=== PATIENT | female | born 1965 | race Caucasian/White ===

== ENCOUNTER 2018-09-19 10:47 | Outpatient (CLI) | payer OTHER, SELFPAY ==
--- NOTE | 2018-09-19 13:51 | DI.US_ITS ---
SYMPTOMS/DIAGNOSIS: NAUSEA AND VOMITING, R11.2, RIGHT LOWER QUADRANT ABDOMINAL PAIN, R10.31, EPIGASTRIC ABDOMINAL PAIN, R10.13 ABDOMINAL ULTRASOUND: Routine examination was performed. The aorta is of normal caliber. The IVC is unremarkable. The liver measures 17.2 cm in length. No hepatic mass is identified. The liver is normal in echogenicity. The gallbladder is negative sonographically. There is a negative sonographic Hernandez's sign. No pericholecystic fluid, stone or gallbladder wall thickening is seen. The common duct is within normal limits at 0.3 cm. The pancreas, spleen and kidneys are unremarkable. The right lower quadrant was evaluated sonographically and it was grossly unremarkable. No sonographic findings to suggest an acute appendicitis are present. IMPRESSION: Normal abdominal ultrasound.
== END 2018-09-19 11:07 ==
PROVIDERS: Visit Provider Nurse Practitioner Family
DX: R11.2 Nausea with vomiting, unspecified (principal); R10.31 Right lower quadrant pain; R10.13 Epigastric pain
CPT/HCPCS: 76700

== ENCOUNTER 2018-09-19 17:20 | Outpatient (REF) | payer OTHER, SELFPAY ==
[2018-09-19 18:03] LABS: Abs Immature Grans 0.01 k/cumm (0.0-0.09); Absolute Basophil Count 0.04 k/cumm (0.0-0.2); Absolute Eosinophil Count 0.19 k/cumm (0.0-0.7); Absolute Monocyte Count 0.36 k/cumm (0.11-0.7); Absolute Neutrophil Count 3.67 k/cumm (1.2-6.7); Basophils % 0.7; Eosinophils % 3.5; HCT 42.7 % (36.0-46.0); HGB 14.3 g/dL (12.0-15.5); Immature Grans % 0.2; Lymphocytes % 21.9; Mean Corp. HGB Concentration 33.5 g/dL (32.0-36.0); Mean Corpuscular Volume 95.5 fL (80-95); Mean Platelet Volume 10.5 fL (8.0-11.0); Monocytes % 6.6; Neutrophils % 67.1; Platelet Count 286 x1000/uL (130-400); RBC 4.47 m/cumm (4.00-5.20); RBC Distribution Width 12.9 % (11.7-14.6); White Blood Cell Count 5.47 k/cumm (4.4-10.8)
[2018-09-19 18:17] LABS: ALT 38 U/L (12-78); AST 25 U/L (15-37); Albumin 3.6 g/dL (3.4-5.0); Alkaline Phosphatase 67 U/L (46-116); Amylase 58 U/L (25-115); Anion Gap 8.4 mmol/L (3-11); BUN 15 mg/dL (7-18); Bilirubin, Total 0.4 mg/dL (0.2-1.0); CO2 26.6 mmol/L (21.0-32.0); CREATININE 0.98 mg/dL (0.55-1.02); Calcium 8.6 mg/dL (8.5-10.1); Chloride 105 mmol/L (98-107); Estimated GFR 59.83 (mL/min/1.73m2); Glucose 85 mg/dL (70-100); Lipase 219 U/L (73-393); Potassium 4.5 mmol/L (3.5-5.1); Sodium 140 mmol/L (136-145); Total Protein 6.9 g/dL (6.4-8.2)
== END 2018-09-19 17:40 ==
LOC: NCHCN 17:20
PROVIDERS: Visit Provider Nurse Practitioner Family
DX: R10.13 Epigastric pain (principal); R10.31 Right lower quadrant pain; R11.2 Nausea with vomiting, unspecified
CPT/HCPCS: 80053; 83690; 82150; 85025

== ENCOUNTER 2021-03-08 03:13 | Outpatient (CLI) | payer OTHER, SELFPAY ==
[2021-03-09 10:44] LABS: Lyme Ab w Rflx to Lyme Confirm Negative (Negative)
[2021-03-10 16:07] LABS: Anaplasma phagocytophilum Negative (Negative); B. miyamotoi PCR Negative (Negative); Babesia divergens/MO-1 Negative (Negative); Babesia duncani Negative (Negative); Babesia microti Negative (Negative); Ehrlichia chaffeensis Negative (Negative); Ehrlichia ewingii/canis Negative (Negative); Ehrlichia muris eauclairensis Negative (Negative)
== END 2021-03-08 03:14 | disposition home or self-care (01) ==
LOC: LBO 03:13
PROVIDERS: Visit Provider Nurse Practitioner Family
DX: M25.50 Pain in unspecified joint (principal)
CPT/HCPCS: 36415; 87798; 86618

== ENCOUNTER 2021-03-16 18:02 | Outpatient (REF) | payer OTHER, SELFPAY ==
[2021-03-16 14:30] LABS: ALT 23 U/L (14-59); AST 19 U/L (15-37); Albumin 3.7 g/dL (3.4-5.0); Alkaline Phosphatase 74 U/L (46-116); Anion Gap 10.1 mmol/L (3-11); BUN 13 mg/dL (7-18); Bilirubin, Total 0.5 mg/dL (0.2-1.0); CO2 25.9 mmol/L (21.0-32.0); CREATININE 0.9 mg/dL (0.55-1.02); Calcium 8.9 mg/dL (8.5-10.1); Calculated LDL 109 mg/dL (<100); Chloride 104 mmol/L (98-107); Cholesterol 201 mg/dL (<200); Glucose 117 mg/dL (74-106); HDL Cholesterol 71 mg/dL (40-60); Potassium 4.3 mmol/L (3.5-5.1); Sodium 140 mmol/L (136-145); TSH (W/Ref FT4) 1.74 uIU/mL (0.36-3.74); Total Protein 6.7 g/dL (6.4-8.2); Triglyceride 108 mg/dL (<150)
== END 2021-03-16 18:03 | disposition home or self-care (01) ==
LOC: NCHCN 18:02
PROVIDERS: Visit Provider Nurse Practitioner
DX: R53.83 Other fatigue (principal)
CPT/HCPCS: 80053; 80061; 84443

== ENCOUNTER 2021-04-20 02:34 | Outpatient (CLI) | payer OTHER, SELFPAY ==
--- NOTE | 2021-04-20 | DI.MAMMO_ITS ---
Exam(s) MAMMO SCREENING EXAM: MAMMO SCREENING CLINICAL HISTORY: SCREENING, Z12.39. TECHNIQUE: Bilateral full field digital CC and MLO mammographic images were obtained with 3D tomosyn thesis and utilizing computer aided detection (CAD). COMPARISON: Prior mammograms dating back to 2012, the most recent being September 2017. FINDINGS: Fibroglandular tissue pattern is moderately dense. No new significant radiograph findings in left breast. In the upper outer quadrant of the right breast there is an asymmetric density now evident measuring approximately 8 x 9 millimeters and located approximately 12 cm in from the nipple. Spot views and u ltrasound recommended there are no malignant-appearing microcalcification groups is region or elsewhe re in either breast There is no significant architectural distortion nor skin thickening-retraction. IMPRESSION: No radiographic evidence of malignancy in left breast. In the right breast there is an asymmetric 8 x 9 millimeter density now evident, located upper outer quadrant approximately 12 cm in from the nipple. Spot compression views and ultrasound recommended. BI-RADS Category 0 - Assessment Incomplete: Need additional imaging evaluation Breast Density - Category C - Heterogeneously dense Breast density Category C or D implies that the patient has dense breast tissue. Dense breast tissue can make it harder to find cancer on a mammogram. Dense breast tissue is also associated with an incr eased risk of breast cancer. This information about the result of the mammogram report was provided to the patient to raise their awareness. Use this report when you speak with the patient about their risks for breast cancer, which includes their family history. At that time, you may recommend additional screening tests (Ultrasoun d or MRI) as these tests may add significant information. A negative radiographic report should not delay biopsy if a dominant or clinically suspicious mass is present. Up to ten percent of cancers are not identified on mammography. A negative report may reinforce clinical impression. Adenosis and dense breasts may obscure an underlying neoplasm. False positive reports average 6 to 10%. Patient will receive a letter notifying them of these results.
== END 2021-04-20 02:54 ==
PROVIDERS: Visit Provider Nurse Practitioner
DX: Z12.31 Encounter for screening mammogram for malignant neoplasm of breast (principal); R92.8 Other abnormal and inconclusive findings on diagnostic imaging of breast
CPT/HCPCS: 77063; 77067

== ENCOUNTER 2021-05-18 02:01 | Outpatient (CLI) | payer OTHER, SELFPAY ==
--- NOTE | 2021-05-18 | DI.US_ITS ---
Exam(s) MG MAMMO SCREEN CALL BACK UNI US BREAST RT LIMITED EXAM: MG MAMMO SCREEN CALL BACK UNI and U/S breast RT limited CLINICAL HISTORY: F/U MAMMO, ASYMMETRIC DENSITY RT. TECHNIQUE: Craniocaudal and mediolateral oblique Full Field Digital Mammography views of the right b reast with Computer Aided Diagnosis followed by Tomosynthesis and right breast ultrasound. COMPARISON: Priors available for comparison. FINDINGS: Mammography/Tomosynthesis: Masses/Architectural Distortion: None seen. The asymmetry in the upper right breast persists. No def inite mass is seen. Microcalcifictions: No suspicious pleomorphic-type are seen. Skin Thickening/Nipple Retraction: None. Right breast US: Echotexture: Normal appearance of the glandular tissue. Shadowing: No suspicious foci. Cyst: There is a 0.5 x 0.3 x 0.6 cm cyst in the retroareolar region of the right breast. There is a 0.5 x 0.2 x 0.3 cm cyst at the 2 o'clock position of the right breast 8 cm from the nipple. Solid lesions: None seen. Ductal dilation: None. IMPRESSION: 1. No evidence of malignancy is noted. 2. A six-month follow-up right mammogram is recommended for re-evaluation. 3. The findings were discussed with the patient on the date of the examination. BI-RADS Category 3 - 6 month - Probably Benign Finding: Recommend follow-up imaging in 6 months Breast Density - Category C - Heterogeneously dense Breast density Category C or D implies that the patient has dense breast tissue. Dense breast tissue can make it harder to find cancer on a mammogram. Dense breast tissue is also associated with an incr eased risk of breast cancer. This information about the result of the mammogram report was provided to the patient to raise their awareness. Use this report when you speak with the patient about their risks for breast cancer, which includes their family history. At that time, you may recommend additional screening tests (Ultrasoun d or MRI) as these tests may add significant information. A negative radiographic report should not delay biopsy if a dominant or clinically suspicious mass is present. Up to ten percent of cancers are not identified on mammography. A negative report may reinforce clinical impression. Adenosis and dense breasts may obscure an underlying neoplasm. False positive reports average 6 to 10%. Patient will receive a letter notifying them of these results.
== END 2021-05-18 02:21 ==
PROVIDERS: Visit Provider Nurse Practitioner
DX: R92.8 Other abnormal and inconclusive findings on diagnostic imaging of breast (principal)
CPT/HCPCS: 76642; 77063; 77067

== ENCOUNTER 2021-09-02 19:37 | Outpatient (REF) | payer OTHER, SELFPAY ==
[2021-09-02 20:12] LABS: Source Nasal/Nares
[2021-09-02 22:39] LABS: COVID-19 PCR Negative (Negative)
== END 2021-09-02 19:38 | disposition home or self-care (01) ==
LOC: LBN 19:37
PROVIDERS: Visit Provider Family Medicine
DX: Z20.822 Contact with and (suspected) exposure to COVID-19 (principal)
CPT/HCPCS: 87635

== ENCOUNTER 2021-10-14 02:04 | Outpatient (CLI) | payer OTHER, SELFPAY ==
--- NOTE | 2021-10-14 14:10 | DI.MRI_ITS ---
Exam(s) MR LUMBAR SPINE WO EXAM: MR LUMBAR SPINE WO CLINICAL HISTORY: BACK PAIN W/RADICULOPATHY M54.16. TECHNIQUE: Multiplanar multisequence MRI of the Lumbar spine was performed. COMPARISON: No exams were available for comparison FINDINGS: Bones: The last intervertebral disc space is designated the L5/S1 level for the numbering purpose of this examination. The vertebral body heights are well maintained. There is a grade 1 spondylolisthe sis of L4 on L5. The signal characteristics are unremarkable. Cord: The conus tip ends at the T12 level. It is of normal size and signal intensity. T12-L1: No disc herniations or bulges are present. No central spinal canal or neural foraminal stenos is. L1-2: No disc herniations or bulges are present. No central spinal canal or neural foraminal stenosis . L2-3: There is a diffuse disc bulge. No significant central spinal canal stenosis is present. No ne ural foraminal stenosis is present. L3-4: There is a mild diffuse disc bulge. No significant central spinal canal stenosis is present. No neural foraminal stenosis is present. L4-5: There is a diffuse disc bulge slightly asymmetric to the right. There are prominent hypertroph ic changes of the facets and ligamentum flavum hypertrophy. There is central spinal canal stenosis w ith narrowing of the AP diameter to 6 mm. No significant neural foraminal stenosis is seen. L5-S1: There is a small left paracentral disc herniation. There does appear to be impingement on the left S1 nerve root. There are degenerative changes of the facets.No significant neural foraminal st enosis or central spinal canal stenosis is present. Soft tissues: The visualized SI joints and sacrum are well maintained. The paraspinal soft tissues ar e unremarkable. Visualized abdominal organs: Unremarkable. IMPRESSION: 1. Multilevel degenerative changes in the lumbar spine as described. The findings are most marked at L4-L5 where there is marked central spinal canal stenosis. 2. Small left paracentral disc herniation at L5-S1. It appears to impinge upon the left S1 nerve angela t. DATA REPOSITORY:
== END 2021-10-14 02:24 ==
PROVIDERS: Visit Provider Nurse Practitioner
DX: M54.16 Radiculopathy, lumbar region (principal); M51.17 Intervertebral disc disorders with radiculopathy, lumbosacral region; M47.27 Other spondylosis with radiculopathy, lumbosacral region; M43.16 Spondylolisthesis, lumbar region
CPT/HCPCS: 72148

== ENCOUNTER 2021-11-24 01:38 | Outpatient (CLI) | payer OTHER, SELFPAY ==
--- NOTE | 2021-11-24 | DI.US_ITS ---
Exam(s) MG MAMMO DIAGNOSTIC UNI US BREAST RT LIMITED EXAM: US BREAST RT LIMITED CLINICAL HISTORY: 6 MONTH F/U PER DR WOODWARD TECHNIQUE: Ultrasound performed using standard protocol. COMPARISON: US US BREAST RT LIMITED from 05/18/2021 FINDINGS: Right breast mammogram is interpreted in conjunction with additional mammographic views of the right breast and right breast ultrasound. Prior examinations April 2021 showed a nodular appearing area o f asymmetric density in the upper outer quadrant of the right breast. Findings are essentially uncha nged on today's examination and compression views again fail to show a discrete mass. Breast ultraso und shows no evidence of a mass or cyst. No other significant change in appearance of the breast. IMPRESSION: No specific evidence of malignancy at this time. I would suggest that routine screening examinations resume with a bilateral mammogram in 6 months. BI-RADS Cat 3 - 6 month - Probably Benign Finding: Recommend follow-up imaging in 6 months Breast Density - Category C - Heterogeneously dense DATA REPOSITORY:
== END 2021-11-24 01:58 ==
PROVIDERS: Visit Provider Nurse Practitioner
DX: N64.59 Other signs and symptoms in breast (principal)
CPT/HCPCS: 76642; 77061; 77065; G0279

== ENCOUNTER 2021-12-16 15:34 | Outpatient (REF) | payer OTHER, SELFPAY ==
--- NOTE | 2021-12-16 13:40 | PAPFT_PTH ---
PATIENT: Emilia Guerrero LOC: [facility] U#:[id number] AGE/SX: 56/F ROOM: RE12/16/[address]: Myrtle Mcgraw MD : [id number] BED: DIS: 12/16/2021 SPEC #: [id number] RECD: 12/16/21 16:32 STATUS: JEROME RENathen #: [id number] NOMAN: 12/16/21 13:[address]: Myrtle Mcgraw DEPT: [facility] Cytology RECD BY: Kayce Resendez ENTERED: 12/16/21 16:33 SP TYPE: PAPFT BRIGITTE DR: Unknown,Unknown Tissues: 1 - CX/ENDOCX FOR PAP SMEARS Procedures: PAP THIN PREP/UVM Screening HPV DNA PROBE Comments: [id number]
== END 2021-12-16 15:35 | disposition home or self-care (01) ==
LOC: LBN 15:34
PROVIDERS: Visit Provider Obstetrics & Gynecology
DX: Z12.4 Encounter for screening for malignant neoplasm of cervix (principal); Z11.51 Encounter for screening for human papillomavirus (HPV)
CPT/HCPCS: 88142; 87624

== ENCOUNTER 2022-02-02 07:58 | Outpatient (CLI) | payer OTHER, SELFPAY ==
[2022-02-02 08:06] VITALS: BP 115/77; PULSE 62; RESP 18; TEMP 36.5; O2SAT 97
--- NOTE | 2022-02-02 08:35 | DI.RAD_ITS ---
Exam(s) XR PAIN CLINIC SACRIOILIAC 2V EXAM: XR PAIN CLINIC SACRIOILIAC 2V CLINICAL HISTORY: sacroiliac dysfunction TECHNIQUE: 2D and realtime digital imaging was performed. CONTRAST MATERIAL: Refer to procedure report. COMPARISON: No exams were available for comparison FINDINGS: Fluoroscopy was provided for Dr. Pacheco during the performance of a left sacroiliac joint injection. Please refer to the procedure report for complete details. Ka,r=5.66 mGy IMPRESSION:
--- NOTE | 2022-02-02 08:36 | PDOC.PAIN ---
Pain Clinic Procedure Note Procedure Note Procedure Note: INTRA-ARTICULAR SI JOINT INJECTION Emilia Guerrero has been referred to the [facility] for intra-articular SI joint injection. COMMENTS: I previously evaluated her in the office. We are not using contrast due to the global shortage. Dx: Bilateral sacroiliac joint dysfunction Pre-procedure pain VAS = 4/10 Patient was interviewed and the medical record reviewed. There were no medical, pharmacologic, radiographic or other structural contraindications to attempting fluoroscopically guided intra-articular SI joint injection. Risks and expected side effects as well as potential benefit of the procedure were reviewed and voiced concerns addressed. The printed consent form was signed and witnessed. Standard time-out procedure was performed. Patient was placed in the prone position on the fluoroscopy table and automated blood pressure cuff and pulse oximeter applied. The skin entry point for approaching bilateral SI joints was identified under the most advantageous fluoroscopic view and marked. Following thorough Chlorhexadine preparation of the skin and draping and 1% lidocaine infiltration of the skin entry point and subcutaneous tissues, a 22 gauge 3.5 spinal needle was placed under fluoroscopic guidance into bilateral SI joints was identified under the most advantageous fluoroscopic view and marked. Intra-articular placement was confirmed by a clear arthrogram resulting from the injection of 0.25ml Omnipaque 240, 1ml 1% lidocaine, and 1/2 cc of Depomedrol (80 mg/cc) were injected intra-articularily to each joint with an initial reproduction of a significant component of the usual pain. Vital signs were stable throughout the procedure and were as recorded in the docflowsheet by the nursing staff. If given, dosages of intravenous drugs for anxiolysis and analgesia were documented in MAR. Follow up plans and appointments were discussed with the patient. Post procedure instruction was given as documented in nursing documentation and having met discharge criteria, and was discharged from the [facility]. COMMENTS: Post-procedure pain VAS = 0/10 Aníbal Pacheco DO, MPH [facility]-Pain Management [facility]-Center for Pain Management CC: Unknown,Unknown
[2022-02-02 08:42] VITALS: BP 155/84; PULSE 64; RESP 15; O2SAT 98
[2022-02-02] MEDS: methylPREDNISolone ACETATE 80 MG/ML VIAL IJ (08:42)
== END 2022-02-02 07:59 | disposition home or self-care (01) ==
LOC: PC 07:59
PROVIDERS: Visit Provider Preventive Medicine Occupational Medicine
DX: M53.3 Sacrococcygeal disorders, not elsewhere classified (principal)
CPT/HCPCS: 27096; 72200; J1040

== ENCOUNTER 2022-05-17 08:44 | Outpatient (CLI) | payer OTHER, SELFPAY ==
--- NOTE | 2022-05-17 06:00 | DI.RAD_ITS ---
Exam(s) XR PAIN CLINIC LUMBAR SP 2V EXAM: XR PAIN CLINIC LUMBAR SP 2V CLINICAL HISTORY: Dx: Lumbar Radiculopathy TECHNIQUE: 2D and realtime digital imaging was performed. Radiologist not present. CONTRAST MATERIAL: None. COMPARISON: No exams were available for comparison FINDINGS: Fluoroscopy was provided for pain management therapy. L5-S1 epidural steroid injection. Please refe r to procedure report or details. Cumulative dose: Ka,r=not given mGy IMPRESSION: RADIATION DOSE DELIVERED:
[2022-05-17 09:04] VITALS: BP 98/68; PULSE 80; RESP 12; O2SAT 98
[2022-05-17] MEDS: methylPREDNISolone ACETATE 80 MG/ML VIAL IJ (09:24)
[2022-05-17] MEDS: Omnipaque 240 MG/ML 50 ML BTL IJ (09:24)
[2022-05-17 09:25] VITALS: BP 113/78; PULSE 69; RESP 16; O2SAT 96
--- NOTE | 2022-05-17 10:02 | PDOC.PAIN ---
Pain Clinic Procedure Note Procedure Note Procedure Note: Lumbar Epidural Steroid Injection Procedure Note COMMENTS: She was previously evaluated in the office. Her pre-procedure pain VAS was 6/10. Dx: Lumbosacral radiculopathy Emilia Guerrero has been referred to the [facility] for lumbar epidural steroid injection. The patient was greeted by the nurse who verified patients name and . Patient was then taken to the fluoroscopy suite. The patient was interviewed and the medial record reviewed. There were no medical, pharmacologic, radiographic, or other structural contraindications to attempting fluoroscopically guided lumbar epidural steroid injection. Risks and expected side effects as well as potential benefits of the procedure were reviewed and voiced concerns expressed. The patient consent form was signed and witnessed. Standard patient time-out procedure was performed. The patient was placed in the prone position on the fluoroscopy table and automated blood pressure cuff and pulse oximeter applied. The skin entry point for entering/approaching the epidural space at L5-S1 and marked. Following thorough chlorhexadine preparation of the skin and draping and 1% lidocaine infiltration of the skin entry point and subcutaneous tissues, a 18 gauge Touhy needle was placed under fluoroscopic guidance and with loss of resistance technique into the epidural space. Needle tip placement and depth were aided and confirmed by fluoroscopy. There was no paresthesia or return of blood or CSF through the needle. 1 cc's of Omnipaque 240 was injected with clear epidural spread confirmed with fluoroscopy. 80mg depomedrol was injected. There was not any unusual discomfort expressed by Emilia Guerrero. Patient's vital signs were stable throughout the procedure and were as recorded in nursing records. Follow up plans and appointments were discussed with patient. Post procedure instruction was given as documented in nursing records and having met discharge criteria and was discharged from the [facility] Management Center. COMMENTS: If this procedure is helpful, it can be completed up to 3 times per 12 months. Post-procedure pain VAS was 1/10. Aníbal Pacheco DO, MPH [facility]-Pain Management [facility]-Center for Pain Management
== END 2022-05-17 08:45 | disposition home or self-care (01) ==
LOC: PC 08:46
PROVIDERS: Visit Provider Preventive Medicine Occupational Medicine
DX: M54.17 Radiculopathy, lumbosacral region (principal)
CPT/HCPCS: 62323; 72100; J1040; Q9967

== ENCOUNTER 2022-09-09 07:23 | Emergency (ER) | payer OTHER, SELFPAY ==
[2022-09-09 07:28] VITALS: BP 134/70; PULSE 71; RESP 18; TEMP 36.5; O2SAT 99
--- NOTE | 2022-09-09 07:34 | W.ED.GENAD ---
Discharge Plan Disposition Patient Disposition: Home Condition: Good Discharge Details Clinical Impression: Lumbar radiculopathy, right Primary Care Provider: Phill Najera ED Provider: Balta Goss Home Meds and New Rx's Prescriptions: New prednisone 50 mg tablet 50 mg PO DAILY Qty: 5 0RF No Action naproxen sodium [Aleve] 220 mg capsule 220 mg PO DAILY PRN clindamycin HCl 300 MG capsule 4 cap PO ONCE Qty: 4 3RF lorazepam 0.5 MG tablet 0.5 mg PO BID MDD 2 PRNQty: 10 Discharge Instructions Instructions: Lumbar Radiculopathy (ED) Additional Instructions: At this time your symptoms appear to be consistent with lumbar radiculopathy. Please take the prednisone as directed. It is been sent to your pharmacy. Please continue to take antiacid medications while on the prednisone as prednisone can cause stomach irritation. Take Tylenol and Motrin as needed, but be aware that Motrin with prednisone can cause notable stomach irritation. Please follow-up closely with your back pain specialist. Avoid any heavy lifting. If you notice any worsening of your symptoms, or any new symptoms such as vomiting, diarrhea, fever, chills, shortness of breath, chest pain, numbness, weakness, or fainting , please return immediately to the emergency department for reevaluation. Please follow up with your primary care provider as soon as possible for reassessment and reevaluation. As always, it was a pleasure participating in your medical care today. Referrals: Phill Najera [Primary Care Provider] - Medical Decision Making 57-year-old female with a past medical history of chronic right-sided lumbar radiculopathy for which she receives regular injections for, today for evaluation of right lower lumbar pain. Patient states that symptoms began over the last day or so. It manifests in pain shooting down her right buttock going all the way to the lateral aspect of her right foot. She states that it is been a few months since she has had any back injections. She states that often times the symptoms are quickly relieved with oral prednisone. She has been taking Tylenol and Motrin at baseline, but denies any recent increase. Patient denies any saddle anesthesia, numbness or tingling in the groin, change in sensation when wiping. Patient denies any bowel or bladder incontinence, leakage, or retention. Patient denies any weakness in the lower extremities, atypical falls or imbalance. No other complaints at this time. No other modifying factors. Exam demonstrates normal sensation, strength. With no evidence of significant deficits. Pain subjectively appears to be located on the lateral aspect of the calf extending down to the ankle and along the lateral aspect of the foot. She describes it as a burning numb sensation. Symptoms appear clinically consistent with mild lumbar radiculopathy, chronic. No indication to suspect cauda equina syndrome or other acute surgical neurovascular compromise. Patient is stable for discharge. Will give 5-day burst of 50 mg oral prednisone daily. Will recommend home NSAIDs as needed. Discussed the importance of avoiding significant NSAID and steroid use as this could cause stomach irritation. I have extensively reviewed the treatment plan and discharge instructions with the patient. I have addressed all patient concerns at this time. The patient was made aware of what symptoms to monitor for that would warrant a return to the emergency department. Discussed the plan with the patient, they demonstrate verbal understanding and agreement with our assessment and plan at this time. The documentation in this chart was dictated using [employer] dictation software. Please excuse any dictation errors. HPI General Date/Time Provider Initiated Documentation: 09/09/22 07:26. HPI Narrative: 57-year-old female with a past medical history of chronic right-sided lumbar radiculopathy for which she receives regular injections for, today for evaluation of right lower lumbar pain. Patient states that symptoms began over the last day or so. It manifests in pain shooting down her right buttock going all the way to the lateral aspect of her right foot. She states that it is been a few months since she has had any back injections. She states that often times the symptoms are quickly relieved with oral prednisone. She has been taking Tylenol and Motrin at baseline, but denies any recent increase. Patient denies any saddle anesthesia, numbness or tingling in the groin, change in sensation when wiping. Patient denies any bowel or bladder incontinence, leakage, or retention. Patient denies any weakness in the lower extremities, atypical falls or imbalance. No other complaints at this time. No other modifying factors. Related Data Home Medications Medication Instructions Recorded Confirmed clindamycin HCl 300 mg capsule 4 cap PO ONCE #4 caps 10/05/17 09/09/22 lorazepam 0.5 mg tablet 0.5 mg PO BID PRN #10 tab-caps 10/05/17 09/09/22 naproxen sodium 220 mg capsule 220 mg PO DAILY PRN 01/06/22 09/09/22 (Aleve) prednisone 50 mg tablet 50 mg PO DAILY #5 tabs 09/09/22 Previous Rx's Medication Instructions Recorded clindamycin HCl 300 mg capsule 4 cap PO ONCE #4 caps 10/05/17 prednisone 50 mg tablet 50 mg PO DAILY #5 tabs 09/09/22 Allergies Allergy/AdvReac Type Severity Reaction Status Date / Time Penicillins Allergy Mild Rash Unverified 09/09/22 07:34 Review of Systems All systems reviewed & are unremarkable except as noted in HPI and below PFSH All Active Problems Lumbar radiculopathy, right (Acute) Tendinitis (Acute) Pain, foot (Acute) Bunion (Acute) Sacroiliac joint dysfunction of both sides (Acute) Perimenopause (Acute) Medical History Lumbar radiculopathy Osteoarthritis of right hip Weight gain Surgical History Bunionectomy with 2 revisions age 19 and in her 30's RIGHT FOOT Status post bunionectomy Status post hip replacement (06/13/16) Total replacement of hip (06/13/16) RIGHT Family History Mother Diabetes Essential hypertension Hyperlipidemia Father Heart disease Sister No problems noted. Sister No problems noted. Sister No problems noted. Sister No problems noted. Brother No problems noted. Grandfather Diabetes Heart disease Grandfather Heart disease Grandmother Neoplasm STOMACH Stroke Grandmother Heart disease Son No problems noted. Social History Smoking/Tobacco Use Status: Never Smoking risk assessment performed?: Yes Alcohol Intake: current Alcohol Intake frequency: a few times a month Drug use: Never Substance use type: does not use Do you feel safe in your relationship?: Yes Female Reproductive History Menstrual Age of Menarche: 16 Duration of menses: 3-5 days control method: other (Vasectomy) History History 1 Para 1 Hx # Term Pregnancies 1 Multiple births Hx # Pregnancies Ectopic pregnancies AB induced Hx Number of Living Children 1 AB spontaneous Past Pregnancies Del. Date GA/Weeks # Preg Succ Route Wgt Sex Labor Lgth Anesthesia Location Prov Complic 08/12/91 42 No vaginal 3316.894 g Male Exam Narrative Exam Narrative: 1.Const: Well-nourished, Well-developed, appearing stated age 2.Eyes: PERRL, no conjunctival injection, and symmetrical lids. 3.ENT: Atraumatic external nose and ears. Moist MM. Neck: Symmetric, trachea midline, No thyromegaly. 4.CVS: +S1/S2, No murmurs or gallops. Peripheral pulses 2+ and equal in all extremities. Brisk capillary refill in all extremities. 5.RESP: Unlabored respiratory effort. Clear to auscultation bilaterally. No wheezes rales or rhonchi 6.GI: Soft, Nontender/Nondistended, No hepatosplenomegaly. No guarding or rebound. 7.MSK: Normocephalic/Atraumatic, Extremities w/o deformity or ttp No cyanosis or clubbing, Normal movement of all extremities no midline tenderness to palpation over the CTLS spine. Normal ROM in flexion, extension, side bend, and rotation. Patient has +5 out of 5 strength in the lower extremities in dorsiflexion and plantarflexion, knee flexion and extension, hip flexion and extension. Normal strength for dorsiflexion and plantar flexion however the patient is unable to extend her right great toe, but this is not secondary to neurodeficit, rather exam indicates that patient has had multiple surgeries, and this is removed her ability to extend her great toe secondary to the tendon surgeries. Patient states that this is her baseline.. There is +2 over 2 dorsalis pedis pulses bilaterally. There is normal sensation to the skin with light touch at the foot, knee, and hip. Normal saddle sensation. Good sensation over the deep sural nerve area bilaterally. Rectal exam deferred. Reflexes are +2 over 4 in the patellar reflex bilaterally. +5 out of 5 strength in the medial, ulnar, radial nerve distribution bilaterally in the hands as well as intact light touch sensation to these dermatomes on the hands 8.Skin: Warm, Dry. No rashes or lesions. 9.Neuro: surgical endoscopist II-XII grossly intact. Sensation grossly intact, no focal neurologic deficits. 10.Psych: (AAO) x3. Appropriate mood and affect
== END 2022-09-09 07:58 | disposition home or self-care (01) ==
LOC: ER 07:38
PROVIDERS: Emergency Provider Student in an Organized Health Care Education/Training Program; PCP Family Medicine
DX: M54.16 Radiculopathy, lumbar region (principal)
CPT/HCPCS: 99283

== ENCOUNTER 2022-09-28 11:57 | Outpatient (CLI) | payer OTHER, SELFPAY ==
[2022-09-28 12:08] VITALS: BP 114/77; PULSE 66; RESP 20; TEMP 36.8; O2SAT 96
--- NOTE | 2022-09-28 12:22 | PDOC.PAIN ---
Date of service: 09/28/22 Time of Service: 13:20 Pain Clinic Procedure Note Procedure Note Procedure Note: Lumbar Epidural Steroid Injection Procedure Note COMMENTS: She has had this procedure in the past (05/17/22) and had 4 months of relief. Pre-procedure pain VAS was 7/10. Dx: Lumbosacral radiculopathy Emilia Guerrero has been referred to the [facility] for lumbar epidural steroid injection. The patient was greeted by the nurse who verified patients name and . Patient was then taken to the fluoroscopy suite. The patient was interviewed and the medial record reviewed. There were no medical, pharmacologic, radiographic, or other structural contraindications to attempting fluoroscopically guided lumbar epidural steroid injection. Risks and expected side effects as well as potential benefits of the procedure were reviewed and voiced concerns expressed. The patient consent form was signed and witnessed. Standard patient time-out procedure was performed. The patient was placed in the prone position on the fluoroscopy table and automated blood pressure cuff and pulse oximeter applied. The skin entry point for entering/approaching the epidural space at L5-S1 and marked. Following thorough chlorhexadine preparation of the skin and draping and 1% lidocaine infiltration of the skin entry point and subcutaneous tissues, a 18 gauge Touhy needle was placed under fluoroscopic guidance and with loss of resistance technique into the epidural space. Needle tip placement and depth were aided and confirmed by fluoroscopy. There was no paresthesia or return of blood or CSF through the needle. 1 cc's of Omnipaque 240 was injected with clear epidural spread confirmed with fluoroscopy. 80mg depomedrol was injected. There was not any unusual discomfort expressed by Emilia Guerrero. Patient's vital signs were stable throughout the procedure and were as recorded in nursing records. Follow up plans and appointments were discussed with patient. Post procedure instruction was given as documented in nursing records and having met discharge criteria and was discharged from the [facility]. COMMENTS: If this procedure is helpful, it can be completed up to 3 times per 12 months. Post-procedure pain VAS was 0/10. Aníbal Pacheco DO, MPH [facility]-Pain Management [facility]
--- NOTE | 2022-09-28 12:35 | DI.RAD_ITS ---
Exam(s) XR PAIN CLINIC LUMBAR SP 2V EXAM: XR PAIN CLINIC LUMBAR SP 2V CLINICAL HISTORY: Dx: Lumbar Radiculopathy TECHNIQUE: 2D and realtime digital imaging was performed. CONTRAST MATERIAL: Refer to procedure report. COMPARISON: No exams were available for comparison FINDINGS: Fluoroscopy was provided for Dr. Pacheco during the performance of a lumbar epidural steroid injection. Please refer to the procedure report for complete details. Ka,r=6.9 mGy IMPRESSION:
[2022-09-28] MEDS: methylPREDNISolone ACETATE 80 MG/ML VIAL IJ (12:40)
[2022-09-28] MEDS: Omnipaque 240 MG/ML 50 ML BTL IJ (12:40)
[2022-09-28 12:42] VITALS: BP 133/79; PULSE 73; RESP 17; O2SAT 98
== END 2022-09-28 11:58 | disposition home or self-care (01) ==
LOC: PC 11:57
PROVIDERS: PCP Family Medicine; Visit Provider Preventive Medicine Occupational Medicine
DX: M54.17 Radiculopathy, lumbosacral region (principal)
CPT/HCPCS: 62323; 72100; J1040; Q9967